=== PATIENT | male | born 1965 | race Two or more races ===

== ENCOUNTER 2024-05-02 13:58 | Outpatient (AMB) | payer MEDICARE, MEDICAID, SELFPAY ==
[2024-05-02 14:04] VITALS: BP 124/76; PULSE 88; RESP 18; TEMP 36.8; O2SAT 95; BMI 41.6
--- NOTE | 2024-05-02 14:04 | PD.RESCLINIC ---
Vital Signs 05/02/24 14:04 Height 1.68 m Height Method Stated Weight 117.651 kg Weight Measurement Method Standing Scale BMI 41.6 BP 124/76 Blood Pressure Source Automatic Cuff Blood Pressure Location Left Upper Arm Position Sitting Respiration 18 Pulse 88 Pulse Source Monitor Temp 98.3 F Temp Source Oral Pulse Oximetry (%) 95 Oxygen Delivery Method Room Air Allergies/Meds Allergies & Medications Allergies ibuprofen Allergy (Mild, Verified 05/02/24 14:05) OTHER iodine Allergy (Mild, Verified 05/02/24 14:05) OTHER Medication Reconciliation lansoprazole 30 mg capsule,delayed release (Prevacid) 40 mg PO DAILY ##30 09/01/09 [History Confirmed 06/11/24] methadone 5 mg/5 mL oral solution 59 mg PO QDAY 03/01/24 [History Confirmed 06/11/24] buspirone 30 mg tablet 15 mg (1/2 x 30 mg) PO 2XD #30 tabs 03/14/24 [Rx Confirmed 06/11/24] furosemide 40 mg tablet (Lasix) 40 mg PO QDAY 30 days #30 tabs 03/14/24 [Rx Confirmed 06/11/24] losartan 50 mg tablet 50 mg PO QDAY 30 days #30 tabs 03/14/24 [Rx Confirmed 06/11/24] gabapentin 300 mg capsule (Neurontin) 300 mg PO TID sciatica 30 days #90 caps 04/03/24 [Rx Confirmed 06/11/24] lidocaine 4 % topical patch (Aspercreme (lidocaine)) 1 patch topical BID PRN pain 30 days #10 ea 05/02/24 [Rx Confirmed 06/11/24] methocarbamol 500 mg tablet 500 mg PO QID #30 tabs 05/10/24 [Rx Confirmed 06/11/24] lorazepam 1 mg tablet (Ativan) 1 mg PO BID PRN anxiety #20 tabs 05/22/24 [Rx Confirmed 06/11/24] tramadol 50 mg tablet 50 mg PO Q6H PRN pain #60 tabs 05/22/24 [Rx Confirmed 06/11/24] atorvastatin 40 mg tablet 40 mg PO QPM 06/11/24 [History Confirmed 06/11/24] MA Intake Visit Data Collection New Patient or Established: Established Patient (seen at [facility] within 3 years) Seen by Clinical Staff ONLY (RN/MA): No Pain Present Currently: Yes Pain Location: Back and Leg Pain scale:: 8 Pain Scale Used: [place]-Osorio/Numerical PCP or OBGYN visit in last 3 months: Yes Do You Feel Safe at Home: Yes Authorities Contacted: N/A Smoking Status Smoking Status: Never smoker Immunization / Flu Flu Vaccine in the Last 12 Months: No Flu Vaccine Exclusion Criteria: No Exclusion Criteria Past Medical History Past Medical History NEUROLOGIC: Positive Neurological Disorders (LOAD CHECKER shunt) CARDIAC: Positive Hypercholesterolemia, Congestive Heart Failure and Hypertension; Negative Cardiac Disorders, Myocardial Infarction, Heart Murmur, Coronary Artery Disease, Peripheral Vascular Disease, Valvular Heart Disease, Rheumatic Fever, Edema, Pericarditis, Cellulitis, Deep Vein Thrombosis or Varicose Veins RESPIRATORY: Positive Sleep Apnea; Negative Chronic Obstructive Pulmonary Disease (COPD) GASTROINTESTINAL: Positive Gastrointestinal Disorders, Gastroesophageal Reflux Disease and Obesity; Negative Hepatitis GENITOURINARY: Negative Genitourinary Disorders or Renal Disease REPRODUCTIVE: Negative Testicular Cancer ENT: Negative Cataracts ENDOCRINE: Negative Endocrine Disorders, Diabetes Mellitus Type 1 or Diabetes Mellitus Type 2 HEMATOLOGIC: Negative Blood Disorders PSYCHO/SOCIAL: Positive Depression and Anxiety OTHER HISTORY: Negative Hospitalization, Down Syndrome, Developmental Delay, Shingles, Falls, Blood Transfusions, Blood Transfusion Reaction, Anesthesia Reactions, Organ Transplant, Chemotherapy, Radiation Therapy, Hyperbaric Therapy, MRSA, VRSA, Vancomycin-Resistant Enterococci, Human Immunodeficiency Virus (HIV), Measles, Mumps, Rubella (Maltese Measles), Pertussis, Clostridium Difficile, Cancer or Testicular Cancer Family History FAMILY HISTORY: Positive Family Cardiac Disorders (Father had HTN, Brother of cardiac arrest); Negative Family Psychiatric Problems, Family Respiratory Disorders, Family Gastrointestinal Problems, Family Cancer, Family Surgery or Family Anesthesia Reaction Surgical History SURGICAL: Positive Abdominal Surgery and Brain Shunt; Negative Cardiac Surgery, Open Heart Surgery, Coronary Artery Bypass Graft, Valve Replacement, Vascular Surgery, Coronary Stent, Cardiac Catheterization, Pacemaker, Angiogram, Auto Implanted Cardiovert Defib, Carotid Endarterectomy, Endocrine Surgery, Thyroidectomy, Ear Surgery, Tympanostomy Tube, Eye Surgery, Nose Surgery, Oral Surgery, Tonsillectomy, Adenoidectomy, Cochlear Implant, Corneal Transplant, Throat Surgery, Tracheostomy, Gastric Bypass Surgery, Gastrostomy, Bowel Surgery, Nephrectomy, Transurethral Resection, Joint Replacement, Neurologic Surgery, Vasectomy or Organ Transplant Social History SMOKING STATUS: Smoking status: Never smoker PACK YEARS: Pack-Years: 3 ALCOHOL: Alcohol Intake: Current (occasionally) ALCOHOL FREQUENCY: Alcohol Intake Frequency: holidays/special occasions only HOUSING: Housing: House LIVES WITH: Lives With: Family Patient Portal Luis Social History Living Situation History Housing: House Tobacco History Smoking Status: Never smoker Packs per Day: 1 Pack-Years: 3 Alcohol History Alcohol Intake: Current (occasionally) Alcohol Intake Frequency: holidays/special occasions only Substance Use History Substance Use: History of methamphetamine use Domestic Abuse History Do You Feel Safe at Home: Yes Review of Systems Report any current symptoms Only answer those that you have currently: Past Medical History Past Medical History Have you ever been diagnosed with any of the following: Cardiology Problems Myocardial Infarction: No Heart Murmur: No Coronary Artery Disease: No Peripheral Vascular Disease: No Hypercholesterolemia: Yes Congestive Heart Failure: Yes Valvular Heart Disease: No Rheumatic Fever: No Edema: No Pericarditis: No Cellulitis: No Deep Vein Thrombosis: No Hypertension: Yes Varicose Veins: No Respiratory Problems Chronic Obstructive Pulmonary Disease (COPD): No Sleep Apnea: Yes Stomache/Intestinal Problems Hepatitis: No Gastroesophageal Reflux Disease: Yes Obesity: Yes Genital/Urinary Problems Renal Disease: No Reproductive Problems Testicular Cancer: No Head,Eye,Nose,Throat Problems Cataracts: No Endocrine Problems Diabetes Mellitus Type 1: No Diabetes Mellitus Type 2: No Psychologic Problems Depression: Yes Anxiety: Yes Other Problems Hospitalization: No Down Syndrome: No Developmental Delay: No Shingles: No Falls: No Blood Transfusions: No Blood Transfusion Reaction: No Anesthesia Reactions: No Organ Transplant: No Chemotherapy: No Radiation Therapy: No Hyperbaric Therapy: No MRSA: No VRSA: No Vancomycin-Resistant Enterococci: No Human Immunodeficiency Virus (HIV): No Measles: No Mumps: No Rubella (Maltese Measles): No Pertussis: No Clostridium Difficile: No Cancer: No Surgical History Carotid Endarterectomy: No Coronary Artery Bypass Graft: No Valve Replacement: No Pacemaker: No Thyroidectomy: No History of Present Illness HPI Narrative Mr. Delgado is a 58-year-old male with past medical history of sciatica, hypertension, HFpEF (EF 50-55% on 02/2024), hypertension, GERD, methamphetamine use, opiate use (currently on methadone), anxiety and depression who presented to [facility] clinic for during last visit with complains of severe back pain 10 out of 10 radiating down to bilateral legs, patient was referred to orthopedic surgeon. Today patient states he already saw orthopedic surgeon and requested an MRI,suspected osteomyelitis. Today he needs refill on ativan, and lidocaine patches. Review of Systems Review of Systems Systems Reviewed: All systems reviewed, normal except as documented Assessment & Plan Diagnosis / Problem List (1) Chronic sciatica: Status: Acute Qualifiers: Laterality: right Qualified Code(s): M54.31 - Sciatica, right side Plan: -Continue tramadol -Continued methocarbamol -Continue lidocaine patches -Referral to orthopedic surgeon -Continue gabapentin 300 mg BID for three days then transition to TID -Obtain letter/e-mail from methadone clinic (2) Heart failure with preserved ejection fraction: Status: Acute Qualifiers: Heart failure chronicity: chronic Qualified Code(s): I50.32 - Chronic diastolic (congestive) heart failure Assessment & Plan: Patient currently seen by cardiology outpatient and continue management per cardiology Plan: -Continue follow-up with cardiology (3) Essential (primary) hypertension: Status: Acute Plan: -Continue losartan 50 mg daily (4) History of methamphetamine abuse: Assessment & Plan: Patient continues to remain abstinent from methamphetamine. (5) GERD (gastroesophageal reflux disease): Status: Acute Assessment & Plan: Patient reports taking Prilosec [id number] (6) Methadone maintenance therapy patient: Status: Acute Assessment & Plan: Patient follows up with methadone clinic in [place] (7) Depression: Status: Acute Assessment & Plan: Patient reports to be taking buspirone and ativan Additional Assessment Attending note: I, Edward Meza MD, attest that I was physically present for the salazar portions of the service and evaluated the patient with the resident and I reviewed and discussed the case with the resident and agree with the resident's findings and plans of care as documented above. Follow-up visit. Continued severe back pain with radicular sx Patient states he did see orthopedic surgeon who requested an MRI with concern for suspected osteomyelitis. Continued radicular symptoms. We will give a limited amount of tramadol given that the patient is getting methadone maintenance therapy. We need documentation from his provider for this, giving us clearance to continue to prescribe any controlled substance for the patient. Continue methocarbamol and lidocaine patches. Other issues as noted. Edward Meza MD Physician Billing Established Patient Established Patient: E/M Level 3-CPT 67408 Office Procedures [facility] Level of Care Nursing/Assessment Patient Status: Established Patient Nursing Assessment/Reassessment: Medication Reconciliation, Update PMH in EMR and Vital Signs Coordination of Care: Complex Care and Chronic Disease 1-5, Education Complex Pt/Fam, Consent,records obtained, informed consent and Staff clarify orders Established Patient Charge Established Patient Point Assignment: 90 Established Patient Point Charge: EP Level 3 (80-115)
== END 2024-05-02 14:26 | disposition home or self-care (01) ==
LOC: HODAHC 13:58
PROVIDERS: PCP Student in an Organized Health Care Education/Training Program; Referring Provider Student in an Organized Health Care Education/Training Program; Supervising Provider Internal Medicine; Visit Provider Student in an Organized Health Care Education/Training Program
DX: M54.31 Sciatica, right side (principal); I11.0 Hypertensive heart disease with heart failure; I50.30 Unspecified diastolic (congestive) heart failure; F15.11 Other stimulant abuse, in remission; K21.9 Gastro-esophageal reflux disease without esophagitis; F32.A Depression, unspecified
CPT/HCPCS: 99213; G0463

== ENCOUNTER 2024-06-11 08:41 | Day surgery (SDC) | payer MEDICARE, MEDICAID, SELFPAY ==
[2024-06-11] VITALS (15 sets, daily range): BP systolic 122–150; BP diastolic 71–92; PULSE 69–89; RESP 12–22; TEMP 36.6–37.1; O2SAT 94–98; BMI 43.5
[2024-06-11 09:36] LABS: Basophils % (Auto) 1 % (0-2.5); Eosinophils # (Auto) 0.1 Thou/mm3 (0.0-0.5); Eosinophils % (Auto) 3 % (0-10); Hematocrit 35.3 % (41.0-53.0); Hemoglobin 11.8 g/dL (13.5-16.0); Immature Granulocytes % (Auto) 0 % (0-0); Immature Granulocytes Auto 0.01 Thou/mm3 (0.00-0.00); Lymphocytes % (Auto) 31 % (10-50); Mean Corpuscular HGB Conc 33.4 g/dl (31.0-37.0); Mean Corpuscular Hemoglobin 31.1 pg (25.0-35.0); Mean Corpuscular Volume 93 fL (80-100); Monocytes # (Auto) 0.5 Thou/mm3 (0.0-0.8); Monocytes % (Auto) 16 % (0-12); Neutrophils # (Auto) 1.6 Thou/mm3 (1.8-7.7); Neutrophils % (Auto) 49 % (37-80); Nucleated Red Blood Cell % 0 /100 WBC (0); Platelet Count 81 Thou/mm3 (140-440); RDW Standard Deviation 48.4 fL (35.1-43.9); Red Blood Count 3.79 Miln/mm3 (4.50-5.90); White Blood Count 3.3 Thou/mm3 (3.8-10.6)
[2024-06-11 09:43] LABS: Anion Gap 6 (7-16); BUN/Creatinine Ratio 16 Ratio (12-20); Blood Urea Nitrogen 13 mg/dL (9-23); Calcium 8.8 mg/dL (8.3-10.6); Carbon Dioxide 29.9 mMol/L (20.0-31.0); Chloride 103 mMol/L (98-107); Creatinine (Component) 0.8 mg/dL (0.6-1.3); Estimated Creatinine Clearance 122.7 mL/min (>60); Glucose 98 mg/dL (74-106); INR 1.2 (0.9-1.3); Osmolality,Calculated 277 (275-295); Partial Thromboplastin Time 30.3 Seconds (22.0-36.0); Potassium 3.4 mMol/L (3.4-5.1); Prothrombin Time 12.5 Seconds (9.0-12.2); Sodium 139 mMol/L (136-145); eGFR > 60 See Note
--- NOTE | 2024-06-11 12:00 | ESOP_ITS ---
Cardiac Cath Procedure Procedure Name Date of procedure: 06/11/2024 PARTICLE BOARD SUPERVISOR: Tomás Sebastian MD PROCEDURE PERFORMED: 1. Left heart cardiac catheterization including right, left coronary angiograms and left ventriculogram 2. Ultrasound-guided access of the right radial artery 3. Conscious sedation for 30 minutes. Procedure Narrative HISTORY AND INDICATIONS: 58-year-old male with a past medical history of systolic CHF, essential hypertension, history of polysubstance abuse including meth and marijuana, last used meth 2 days ago and has been using it for more than 8 years, obstructive sleep apnea, anxiety, peripheral neuropathy, morbid obesity, and GERD, had a positive nuclear stress test that showed decreased uptake in the both inferior and inferior lateral segments with stress compared to the rest indicating mild to moderate area of stress-induced ischemia and hence patient was scheduled for the elective left heart cardiac catheterization. Patient was explained the risk, benefits and alternatives of performing a left heart cardiac catheterization including the risk of bleeding, heart attack, stroke and in detail and the patient agreed for the procedure. Consent signed, placed in the chart and H&P updated. Patient was explained the risk benefits and alternatives of performing a left heart cardiac catheterization including the risk of bleeding, heart attack, stroke and in detail and the agreeable for the procedure. Consent signed, placed in the chart and H&P updated. DESCRIPTION OF PROCEDURE: The patient was brought to the cardiac catheterization lab and all asceptic precautions were followed. Patient was given 1 Mg of Verse d and 50 mcg of fentanyl for moderate conscious sedation. 2 mL of lidocaine was given in the right wrist. The right radial artery was accessed via the ultrasound guidance as well as micropuncture technique. A 6 Tajik glide sheath was introduced. We then used a 5 Tajik TIG 4 catheter to perform the left and right coronary angiograms as well as a left ventriculogram which showed the following findings. 1. Left ventricular ejection fraction was normal at 60 to 65% without any regional wall motion abnormalities. LVEDP was normal at 12 mmHg. There was no significant transvalvular aortic gradient. 2. Right dominant circulation 3. Left main artery is a large-caliber vessel without any significant stenosis. 4. LAD is a large sized artery without show any significant disease. 5. LCx is a large sized artery with medium OM1 and small lateral OM without any significant disease. 6. RCA is a large artery with medium RPDA and RPL without any significant disease. A radial band was used to achieve the hemostasis of the right radial artery access. Patient will be monitored in the cardiac attendant lodging facilities for the next 2 to 3 hours and will be discharged home / telemetry later today if hemodynamically stable. Complications: None Specimens: None Blood loss: Estimated 5-10 ml Summary/findings: 1. Abnornal Stress test: LHC showed normal coronaries without any angiographically significant obstruction and only minimal luminal irregularities. 2. LVEF was normal at 60-65% and normal LVEDP of 12 mmHg. No transvalvular aortic gradient. Recommendations: 1. Recommended aggressive risk factor modification and aggressive medical treatment 2. Recommended no lifting more than 5 pounds for next 7-10 days and follow up in my office in 7 days. Tomás Sebastian MD Interventional Cardiology.
[2024-06-11] MEDS: SODIUM CHLORIDE 0.45 % 500 ML 100 ML IV (13:00)
--- NOTE | 2024-06-11 17:57 | PC.NURSE ---
1433 patient is awake, alert, breathing unlabored, s/p LHC by Dr. Sebastian, TR band to right wrist, ok to start removing air per RN report. 2ml air has been removed from TR band, will continue to monitor patient and remove air to TR band. Report received from Tash REAL. Pt to recover for 2hrs. 1535 TR band has been removed, no bleeding or hematoma noted. 1727 patient is awake, alert, breathing unlabored, dressing to right wrist dry with no bleeding or hematoma. patient able to tolerate food tray. meets discharge criteria, discharge instructions given to patient and , patient discharged home in wheelchair with all belongings.
== END 2024-06-11 17:27 | disposition home or self-care (01) ==
PROVIDERS: Referring Provider Internal Medicine Cardiovascular Disease; Visit Provider Internal Medicine Cardiovascular Disease
PROC: (CPT 93458; principal; 2024-06-11 12:30)
DX: I25.10 Atherosclerotic heart disease of native coronary artery without angina pectoris (principal); E66.01 Morbid (severe) obesity due to excess calories; G47.33 Obstructive sleep apnea (adult) (pediatric); I11.0 Hypertensive heart disease with heart failure; F19.10 Other psychoactive substance abuse, uncomplicated; G90.09 Other idiopathic peripheral autonomic neuropathy; K21.00 Gastro-esophageal reflux disease with esophagitis, without bleeding; I50.20 Unspecified systolic (congestive) heart failure; Z68.41 Body mass index [BMI] 40.0-44.9, adult
CPT/HCPCS: 93458; 36415; 80048; 85025; 85610; 85730; 99152; A4649; C1769; C1887; C1894; J0171; J0461; J1200; J1643; J1720; J2250; J2310; J2371; J3010; J3490; J7040; Q9967; J1644; J2305